=== PATIENT | female | born 1960 | race Caucasian/White ===

== ENCOUNTER 2016-10-23 07:01 | Day surgery (SDC) | payer MEDICAID ==
[~2016-10-23] VITALS: Ht 170.2 cm; Wt 74.5 kg
[2016-10-23 07:37] VITALS: BP 157/95
[2016-10-23] MEDS ORDERED: LEVOTHYROXINE PO (07:56)
[2016-10-23] MEDS ORDERED: ENAL1TAB5 PO (07:56)
[2016-10-23] MEDS ORDERED: CITALOPRAM PO (07:56)
[2016-10-23 08:16] LABS: ASPARTATE AMINO TRANSFERASE 16 U/L (15-37); BLOOD UREA NITROGEN 16 mg/dL (7-18)
[2016-10-23] MEDS ORDERED: MIDAZOLAM 1 MG/ML, 2ML ONE (08:35)
[2016-10-23] MEDS ORDERED: FENTANYL PF 100 MCG/2ML ONE (08:35)
[2016-10-23] MEDS ORDERED: PROPOFOL 10 MG/ML, 20ML ONE (08:45)
[2016-10-23] MEDS ORDERED: FENTANYL PF 100 MCG/2ML IV PRN (09:00)
[2016-10-23] MEDS ORDERED: METOCLOPRAMIDE 5 MG/ML, 2ML IV PRN (09:00)
[2016-10-23] MEDS ORDERED: PROMETHAZINE 25 MG/ML, 1ML IV PRN (09:00)
[2016-10-23] MEDS ORDERED: PLEASE ENTER HEIGHT AND WEIGHT MC SCH ×2 (09:00→10:00)
[2016-10-23] MEDS ORDERED: LABETALOL 5MG/ML, 20ML IV PRN (09:00)
[2016-10-23] MEDS ORDERED: OXYcodone 5 MG/5 ML ORAL.SOL UDC PO PRN (09:00)
[2016-10-23] MEDS ORDERED: HYDROmorphone 1 MG/ML, 1ML IV PRN (09:00)
[2016-10-23] MEDS ORDERED: hydrALAzine 20 MG/ML, 1ML IV PRN (09:00)
[2016-10-23] MEDS ORDERED: ONDANSETRON 2MG/ML, 2ML IVPush PRN (09:00)
[2016-10-23] MEDS ORDERED: ACETAMINOPHEN 325 MG TABLET PO PRN (09:00)
[2016-10-23] MEDS ORDERED: MEPERIDINE/PF 25MG/0.5ML IVPush PRN (09:00)
[2016-10-23] MEDS ORDERED: LACTATED RINGERS 1,000 ML IV SCH (09:26)
[2016-10-23] MEDS ORDERED: LIDOCAINE 1%, 2ML SQ PRN (09:30)
[2016-10-23] MEDS ORDERED: ACETAMINOPHEN 650 MG/20.3 ML UDC ONE (09:32)
[2016-10-23] MEDS ORDERED: OXYcodone 5 MG/5 ML ORAL.SOL UDC ONE (09:32)
== END 2016-10-23 11:15 ==
LOC: OUT 07:01
PROVIDERS: ATTEND Specialist
DX: N82.3 Fistula of vagina to large intestine (principal); Z92.21 Personal history of antineoplastic chemotherapy; Z79.82 Long term (current) use of aspirin; Z85.048 Personal history of other malignant neoplasm of rectum, rectosigmoid junction, and anus; Z83.3 Family history of diabetes mellitus; Z83.71 Family history of colonic polyps; Z72.89 Other problems related to lifestyle; Z85.50 Personal history of malignant neoplasm of unspecified urinary tract organ
CPT/HCPCS: 36415; 45990; 80053; 86850; 86900; 86923; J2250; J2704; J3010; J7120

== ENCOUNTER 2016-11-20 08:16 | Day surgery (SDC) | payer MEDICAID ==
[~2016-11-20] VITALS: Ht 170.2 cm; Wt 73.0 kg
[~2016-11-20 08:16] MED LIST: BUPIVACAINE/PF 0.25% ONE; CITALOPRAM PO; ENAL1TAB5 PO; EPINEPHRINE 1 MG/ML, 1ML ONE; LEVOTHYROXINE PO
[2016-11-20] MEDS ORDERED: LACTATED RINGERS 1,000 ML IV SCH (09:11)
[2016-11-20 09:40] VITALS: BP 147/98
[2016-11-20] MEDS ORDERED: MIDAZOLAM 1 MG/ML, 2ML ONE (12:00)
[2016-11-20] MEDS ORDERED: DEXAMETHASONE 4 MG/ML, 1ML ONE (12:00)
[2016-11-20] MEDS ORDERED: PROPOFOL 10 MG/ML, 20ML ONE (12:00)
[2016-11-20] MEDS ORDERED: ROCURONIUM 10 MG/ML ONE (12:00)
[2016-11-20] MEDS ORDERED: GLYCOPYRROLATE 0.2MG/1ML ONE (12:00)
[2016-11-20] MEDS ORDERED: CEFOTETAN 2 GM ONE (12:00)
[2016-11-20] MEDS ORDERED: ONDANSETRON 2MG/ML, 2ML ONE ×2 (12:00→13:37)
[2016-11-20] MEDS ORDERED: NEOSTIGMINE 1 MG/ML, 10ML ONE (12:00)
[2016-11-20] MEDS ORDERED: FENTANYL PF 250 MCG/5ML ONE (12:01)
[2016-11-20] MEDS ORDERED: BUPIVACAINE/PF-EPI 0.25% 1:200K INFIL ONE (12:15)
[2016-11-20] MEDS ORDERED: ACETAMINOPHEN 650 MG/20.3 ML UDC ONE (13:12)
[2016-11-20] MEDS ORDERED: FENTANYL PF 100 MCG/2ML ONE (13:13)
[2016-11-20] MEDS ORDERED: OXYcodone 5 MG/5 ML ORAL.SOL UDC ONE (13:13)
[2016-11-20] MEDS: FENTANYL PF 100 MCG/2ML IV PRN ×2 (13:15→13:40)
[2016-11-20] MEDS ORDERED: KETOROLAC 30 MG/1 ML ONE (13:29)
[2016-11-20] MEDS ORDERED: LABETALOL 5MG/ML, 20ML IV PRN (13:30)
[2016-11-20] MEDS ORDERED: OXYcodone 5 MG/5 ML ORAL.SOL UDC PO PRN (13:30)
[2016-11-20] MEDS ORDERED: hydrALAzine 20 MG/ML, 1ML IV PRN (13:30)
[2016-11-20] MEDS ORDERED: ALBUTEROL/IPRATROPIUM 2.5MG/0.5MG, 3 ML NPPB PRN (13:30)
[2016-11-20] MEDS ORDERED: EPHEDRINE 50 MG/ML, 1ML IVPush PRN (13:30)
[2016-11-20] MEDS ORDERED: ACETAMINOPHEN 325 MG TABLET PO PRN (13:30)
[2016-11-20] MEDS ORDERED: HYDROmorphone 1 MG/ML, 1ML IV PRN (13:30)
[2016-11-20] MEDS ORDERED: PROMETHAZINE 25 MG/ML, 1ML IV PRN (13:30)
[2016-11-20] MEDS ORDERED: ONDANSETRON 2MG/ML, 2ML IVPush PRN (13:30)
[2016-11-20] MEDS ORDERED: MIDAZOLAM 1 MG/ML, 2ML IV PRN (13:30)
[2016-11-20] MEDS ORDERED: MEPERIDINE/PF 25MG/0.5ML IVPush PRN (13:30)
[2016-11-20] MEDS ORDERED: HYDROcodone/APAP 7.5-325MG/15ML UDC PO PRN (13:30)
[2016-11-20] MEDS ORDERED: PROMETHAZINE 25 MG/ML, 1ML ONE (13:37)
[2016-11-20] MEDS ORDERED: KETOROLAC 30 MG/1 ML IVPush ONE (14:00)
== END 2016-11-20 16:00 ==
LOC: OUT 08:16
PROVIDERS: ATTEND Specialist
DX: N82.3 Fistula of vagina to large intestine (principal); C21.0 Malignant neoplasm of anus, unspecified; I10 Essential (primary) hypertension; F32.9 Major depressive disorder, single episode, unspecified; F17.210 Nicotine dependence, cigarettes, uncomplicated; Z85.048 Personal history of other malignant neoplasm of rectum, rectosigmoid junction, and anus; Z72.89 Other problems related to lifestyle; Z83.3 Family history of diabetes mellitus; Z83.71 Family history of colonic polyps; Z79.82 Long term (current) use of aspirin; Z79.01 Long term (current) use of anticoagulants
CPT/HCPCS: 36415; 57300; 85025; 85610; 85730; 88304; J0171; J1100; J1885; J2250; J2405; J2550; J2704; J2710; J3010; J3490; J7120; S0074

== ENCOUNTER 2017-04-23 05:52 | Day surgery (SDC) | payer MEDICAID, OTHER ==
[~2017-04-23] VITALS: Ht 170.2 cm; Wt 80.2 kg
[~2017-04-23 05:52] MED LIST changes: +AMIT150T PO; +ASPI-496 PO; -BUPIVACAINE/PF 0.25% ONE; +CITA20TA5 PO; -EPINEPHRINE 1 MG/ML, 1ML ONE; +LEVO50TA5 PO; +MULT1TAB60 PO; +ONDA4TAB12 PO; +OXYC1TAB7 PO
[2017-04-23 06:51] VITALS: BP 134/90
[2017-04-23] MEDS ORDERED: LACTATED RINGERS 1,000 ML IV SCH (06:51)
[2017-04-23] MEDS ORDERED: MIDAZOLAM 1 MG/ML, 2ML ONE ×2 (08:08→10:02)
[2017-04-23] MEDS ORDERED: FENTANYL PF 100 MCG/2ML ONE ×3 (08:09→12:26)
[2017-04-23] MEDS ORDERED: LIDOCAINE-MPF 2% ,5ML ONE (08:11)
[2017-04-23] MEDS ORDERED: PROPOFOL 10 MG/ML, 20ML ONE ×2 (08:11→10:02)
[2017-04-23] MEDS ORDERED: ROCURONIUM 10 MG/ML,10ML ONE ×2 (08:12→10:02)
[2017-04-23] MEDS ORDERED: SODIUM CHLORIDE 0.9% PF 10ML ONE (08:13)
[2017-04-23] MEDS ORDERED: CEFAZOLIN 1,000 MG ONE ×3 (08:13→10:02)
[2017-04-23] MEDS ORDERED: DEXAMETHASONE 4 MG/ML, 1ML ONE ×3 (08:14→10:02)
[2017-04-23] MEDS ORDERED: ONDANSETRON 2MG/ML, 2ML ONE ×3 (08:14→10:02)
[2017-04-23] MEDS ORDERED: EPINEPHRINE 1 MG/ML, 1ML ONE (08:42)
[2017-04-23] MEDS ORDERED: BUPIVACAINE/PF 0.25% ONE (08:42)
[2017-04-23] MEDS ORDERED: KETOROLAC 30 MG/1 ML ONE ×2 (10:02→10:30)
[2017-04-23] MEDS ORDERED: LABETALOL 5MG/ML 40ML VIAL ONE (10:02)
[2017-04-23] MEDS ORDERED: HYDROmorphone 2 MG/ML, 1ML ONE (10:02)
[2017-04-23] MEDS ORDERED: KETAMINE 10 MG/ML, 20ML ONE (10:02)
[2017-04-23] MEDS ORDERED: ONDANSETRON 2MG/ML, 2ML IVPush PRN (10:30)
[2017-04-23] MEDS ORDERED: OXYcodone 5 MG/5 ML ORAL.SOL UDC PO PRN (10:30)
[2017-04-23] MEDS ORDERED: PROMETHAZINE 25 MG/ML, 1ML IV PRN (10:30)
[2017-04-23] MEDS ORDERED: HYDROmorphone 1 MG/ML, 1ML IV PRN (10:30)
[2017-04-23] MEDS ORDERED: MEPERIDINE/PF 25MG/0.5ML IVPush PRN (10:30)
[2017-04-23] MEDS ORDERED: LABETALOL 5MG/ML, 20ML IV PRN (10:30)
[2017-04-23] MEDS ORDERED: ACETAMINOPHEN 325 MG TABLET PO PRN (10:30)
[2017-04-23] MEDS ORDERED: hydrALAzine 20 MG/ML, 1ML IV PRN (10:30)
[2017-04-23] MEDS ORDERED: HYDROmorphone 1 MG/ML, 1ML ONE ×2 (10:32→11:01)
[2017-04-23] MEDS ORDERED: BUPIVACAINE/PF-EPI 0.25% 1:200K INFIL ONE (11:29)
[2017-04-23] MEDS ORDERED: OXYcodone 5 MG/5 ML ORAL.SOL UDC ONE (12:09)
[2017-04-23] MEDS: FENTANYL PF 100 MCG/2ML IV PRN ×2 (12:28→12:37)
== END 2017-04-23 15:55 ==
LOC: OUT 05:52
PROVIDERS: ATTEND Specialist
DX: N82.8 Other female genital tract fistulae (principal); C21.0 Malignant neoplasm of anus, unspecified; I10 Essential (primary) hypertension; E03.9 Hypothyroidism, unspecified; Z88.5 Allergy status to narcotic agent
CPT/HCPCS: 57300; J0171; J0690; J1100; J1170; J1885; J2250; J2405; J2704; J3010; J3490; J7120